=== PATIENT | female | born 1950 | race Caucasian/White ===

== ENCOUNTER 2019-08-22 20:26 | Emergency (ER) | payer OTHER ==
[~2019-08-22] VITALS: Ht 172.7 cm; Wt 93.0 kg
[~2019-08-22 20:26] MED LIST: CIPROFLOXACIN500 M1 PO; LISINOPRIL20 MG PO; LOPRESSOR 50 MG50 M1 PO; NORCO 5-325 TA1 EACH PO; PRINIVIL20 MG PO; SIMVASTATIN40 MG PO
[2019-08-22] MEDS ORDERED: GRALISE600 MG PO (20:30)
[2019-08-22] MEDS ORDERED: FISH OIL 1,0001 EAC9 PO (20:30)
[2019-08-22] MEDS ORDERED: DOXYCYCLINE 10100 MG PO (22:40)
[2019-08-22] MEDS ORDERED: CEFUROXIME250 MG PO (22:40)
[2019-08-22 23:00] VITALS: BP 122/59
== END 2019-08-22 23:05 | disposition home or self-care (01) ==
LOC: ER 20:26
DX: J18.9 Pneumonia, unspecified organism (principal); I10 Essential (primary) hypertension; E11.9 Type 2 diabetes mellitus without complications; Z88.5 Allergy status to narcotic agent; Z88.2 Allergy status to sulfonamides; Z79.899 Other long term (current) drug therapy